=== PATIENT | male | born 1950 | race Caucasian/White ===

== ENCOUNTER → 2019-07-02 | Day surgery (SDC) | payer MEDICARE ==
[2019-06-27 09:37] LABS: BASOPHILS # (AUTO) 0.1 (0.0-0.1); BASOPHILS % 0.8 % (0.0-1.0); EOSINOPHILS # (AUTO) 0.2 (0.0-0.4); EOSINOPHILS % 3.2 % (0.0-6.0); HEMATOCRIT 44.1 % (38.2-49.6); HEMOGLOBIN 14.5 g/dL (14.0-18.0); LYMPHOCYTES # (AUTO) 1.8 (1.0-3.2); LYMPHOCYTES % 24.8 % (18.0-39.1); MEAN CORPUSCULAR HEMOGLOBIN 30.5 pg (28-32); MEAN CORPUSCULAR HGB CONC 32.9 g/dL (31-35); MEAN CORPUSCULAR VOLUME 92.6 fL (81-99); MONOCYTES # (AUTO) 0.9 (0.2-0.8); MONOCYTES % 12.4 % (4.4-11.3); NEUTROPHILS # (AUTO) 4.2 (2.1-6.9); NEUTROPHILS % 58.5 % (38.7-80.0); PLATELET COUNT 153 x10e3/uL (140-360); RED BLOOD COUNT 4.76 x10e6/uL (4.3-5.7); RED CELL DISTRIBUTION WIDTH 12.4 % (11.7-14.4)
[~2019-07-02] MED LIST: ALLOPURINOL300 MG PO; ASPIR 8181 MG PO; ATORVASTATIN CA20 MG PO; CARVEDILOL12.5 MG PO; DIOVAN160 MG PO; FENTANYL CITRATE/PF 100MCG/2 ML INJ ONE; HYDROCHLOROTHIA25 MG PO; HYOSCYAMINE 0.125 MG TAB ONE; LIDOCAINE HCL 2% LOCAL INJ 5 ML SDV VIAL INJ ONE; MIDAZOLAM HCL 2 MG/2 ML VIAL ONE; PROPOFOL IV EMULSION 10 MG/ML 50 ML VIAL ONE
--- OUTSIDE RECORDS SUMMARY | 2019-07-02 12:41 | XMS REPORT ---
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 Allergies, Adverse Reactions, Alerts This patient has no known allergies or adverse reactions. Medications This patient has no known medications. Encounters Start Date/Time End Date/Time Encounter Type Admission Type Attending [facility] Care Facility Care Department Encounter ID 2019-06-24 09:59:00 2019-06-24 09:59:00 Outpatient [id number]
--- NOTE | 2019-07-02 19:42 | Operative Report ---
DATE OF PROCEDURE: 07/02/2019 SURGEON: Al Powell MD PROCEDURE: Colonoscopy with polypectomy and biopsies. INDICATIONS FOR PROCEDURE: Surveillance colonoscopy, personal history of colon polyps, chronic diarrhea. MEDICATIONS: The patient was done under MAC, please see anesthesiologist's note. PROCEDURE IN DETAIL: With the patient in left lateral decubitus position, a flexible fiberoptic Olympus colonoscope was inserted into the rectum with ease and advanced all the way to the cecum. A minute polyp was noted in the cecum that was removed per the cold biopsy forceps. The ileocecal valve was intubated and the scope was advanced into the terminal ileum. Some aphthous-like ulcers were noted and biopsies were obtained. The scope was then withdrawn back into the colon. It was then withdrawn slowly. Mucosa overlying the ascending and transverse appeared to be within normal limits. Mucosa overlying the left colon revealed some patchy mild inflammatory changes and random biopsies were obtained. Some diverticular disease wall also noted. A minute polyp was removed per cold biopsy forceps from the sigmoid colon. Three polyps were hot biopsied from the rectum. The rectal mucosa revealed also some [id number] inflammatory changes and biopsies were obtained. The scope was then retroflexed into the distal rectum and small internal hemorrhoids were noted, none of which was actively bleeding. The scope was then straightened out and it was subsequently withdrawn after securing an adequate stool specimen that was sent for the appropriate stool studies. The patient tolerated the procedure well. IMPRESSION: 1. Ileitis. 2. Cecal polyp removed per cold biopsy forceps. 3. Colitis, mild, patchy left-sided, random biopsies obtained. 4. Diverticulosis. 5. Sigmoid colon polyp removed per cold biopsy forceps. 6. Rectal polyps x3, hot biopsied. 7. Proctitis, biopsied. 8. Internal hemorrhoids, none actively bleeding. PLAN: Follow up histology. Follow up stool studies. Check CRP, sedimentation rate, and IBD panel. Start Bentyl 10 mg one p.o. t.i.d. Al Powell MD [facility] [place]/MODL /[id number] cc: Hema Wright MD
[2019-07-03 02:48] LABS: WBC,FECAL (FECAL LACTOFERRIN) NEGATIVE (NEGATIVE)
[2019-07-03 14:55] LABS: C DIFFICILE TOXIN A&B AMP PROB NEGATIVE (NEGATIVE)
== END | disposition home or self-care (01) ==
LOC: OR 12:36
PROVIDERS: ATTEND Internal Medicine Gastroenterology
DX: K51.50 Left sided colitis without complications (principal); D12.0 Benign neoplasm of cecum; K62.1 Rectal polyp; K62.89 Other specified diseases of anus and rectum; K57.30 Diverticulosis of large intestine without perforation or abscess without bleeding; K21.9 Gastro-esophageal reflux disease without esophagitis; K64.8 Other hemorrhoids; I10 Essential (primary) hypertension; E78.00 Pure hypercholesterolemia, unspecified; H91.90 Unspecified hearing loss, unspecified ear; F41.9 Anxiety disorder, unspecified; Z91.018 Allergy to other foods; Z01.810 Encounter for preprocedural cardiovascular examination; Z01.812 Encounter for preprocedural laboratory examination; Z79.82 Long term (current) use of aspirin; Z68.28 Body mass index [BMI] 28.0-28.9, adult
CPT/HCPCS: 36415 ×2; 45380; 45384; 83630; 83993; 85025; 85651; 86140; 86256; 86671; 87045; 87177; 87328; 87493; 88305; 93005; J2001; J2250; J2704; J3010

== ENCOUNTER 2021-06-21 19:15 | Emergency (ER) | payer MEDICARE ==
[~2021-06-21] VITALS: Ht 170.2 cm; Wt 81.6 kg
[~2021-06-21 19:15] MED LIST changes: -FENTANYL CITRATE/PF 100MCG/2 ML INJ ONE; -HYOSCYAMINE 0.125 MG TAB ONE; -LIDOCAINE HCL 2% LOCAL INJ 5 ML SDV VIAL INJ ONE; -MIDAZOLAM HCL 2 MG/2 ML VIAL ONE; -PROPOFOL IV EMULSION 10 MG/ML 50 ML VIAL ONE
[2021-06-21] MEDS ORDERED: CASIRIVIMAB/IMDEVIMAB 10 ML in SODIUM CHLORIDE 0.9% 100 ML IV ONE (20:15)
== END 2021-06-21 22:08 | disposition home or self-care (01) ==
LOC: ER 20:05
DX: U07.1 COVID-19 (principal); R50.9 Fever, unspecified; I10 Essential (primary) hypertension; E78.5 Hyperlipidemia, unspecified
CPT/HCPCS: 99283; J7050